=== PATIENT | female | born 1970 | race Caucasian/White ===

== ENCOUNTER → 2017-04-19 | Outpatient (CLI) | payer MEDICARE ==
[2015-09-02 16:55] VITALS: BP 147/92
[~2017-04-19] MED LIST: BENZ100C PO; PRED50TA PO; SULF1TAB24 PO
--- NOTE | 2017-04-20 07:14 | RAD ---
Chest, 2 views, 04/19/2017: History: Dyspnea The heart size and pulmonary vascularity are normal. No pulmonary infiltrates are seen. There is no evidence of pleural fluid. An electronic device overlies the left upper chest, of uncertain significance. Clinical correlation suggested. IMPRESSION: No acute cardiopulmonary abnormality is detected.
== END | disposition home or self-care (01) ==
LOC: RAD 16:46
PROVIDERS: ATTEND Physician Assistant
DX: R06.00 Dyspnea, unspecified (principal)
CPT/HCPCS: 71046

== ENCOUNTER 2017-11-19 21:06 | Inpatient (IN) | payer MEDICARE ==
[~2017-11-19] VITALS: Ht 175.3 cm; Wt 85.5 kg
--- NOTE | 2017-11-19 21:13 | ED.ADGEN ---
Past History Past Medical History: Hypertension, Migraines Past Surgical History: Cholecystectomy, Hysterectomy, Tonsillectomy Alcohol Use: None Drug Use: None Adult General Chief Complaint Chief Complaint ".. I guess I passed out or almost passed out...'.. " this has happen in the past....".. " I got real sweaty.. and then dizzy.. but I got down.. I did not hit my head..." HPI HPI Patient is a 47 year old female who presents with above hx and complaint of near vs syncope event. Pt. being diaphoretic and dizzy prior to near syncope/ syncopal episode. Patient is unaware of what her heart rate was at the time of syncope. Patient denies any injury and fall with the syncopal event. No history of changes in meds. No history of specific ill contacts. No history of trauma. No Recent travel. Patient has a history of hypertension . In the past has had severe migraines which resulted in a stimulator placement. No history of previous cardiac events. Has had near-syncope syncope events in the past. Review of Systems Review of Systems Constitutional: Denies fever or chills [] Eyes: Denies change in visual acuity, redness, or eye pain [] HENT: Denies nasal congestion or sore throat [] Respiratory: Denies cough or shortness of breath [] Cardiovascular: No additional information not addressed in HPI [] GI: Denies abdominal pain, nausea, vomiting, bloody stools or diarrhea [] : Denies dysuria or hematuria [] Musculoskeletal: Denies back pain or joint pain [] Integument: Denies rash or skin lesions [] Neurologic: Denies headache, focal weakness or sensory changes [] Complaints of syncope Endocrine: Denies polyuria or polydipsia [] All other systems were reviewed and found to be within normal limits, except as documented in this note. Family History Family History Non-contributory Current Medications Current Medications Current Medications Medications (Trade) Dose Ordered Sig/Abiola Start Time Stop Time Status Last Admin Dose Admin Lactated Ringer's 1,000 ml @ 1,000 mls/hr Q1H 11/19/17 22:00 11/19/17 22:59 DC 11/19/17 21:34 1,000 MLS/HR See Nursing for home meds. Allergies Allergies Allergies Coded Allergies Type Severity Reaction Last Updated Verified No Known Drug Allergies 01/05/15 No Physical Exam Physical Exam Constitutional: mild distress, non-toxic appearance. [] HENT: Normocephalic, atraumatic, bilateral external ears normal, oropharynx moist, no oral exudates, nose normal. [] Eyes: PERRLA, EOMI, conjunctiva normal, no discharge. [] Neck: Normal range of motion, no tenderness, supple, no stridor. [] Cardiovascular: Bradycardia Heart rate regular rhythm, no murmur [] Lungs & Thorax: Bilateral breath sounds clear to auscultation [] Stimulator Lt chest wall Abdomen: Bowel sounds normal, soft, no tenderness, no masses, no pulsatile masses. [] Old surgical scars. Skin: Warm, diaphoretic,, no erythema, no rash. [] Back: No tenderness, no CVA tenderness. [] Extremities: No tenderness, no cyanosis, no clubbing, ROM intact, no edema. [] Neurologic: Alert and oriented X 3, normal motor function, normal sensory function, no focal deficits noted. []DTR + 2 Patella and Brachial . Move all ext on request. Psychologic: Affect anxious, judgement normal, mood normal. [] Current Patient Data Vital Signs Vital Signs Date Time Temp Pulse Resp B/P (MAP) Pulse Ox O2 Delivery O2 Flow Rate FiO2 11/19/17 22:12 53 21 134/70 (91) 100 Room Air 11/19/17 21:10 98.4 Lab Results Laboratory Tests Test 11/19/17 21:41 White Blood Count 9.9 x10^3/uL (4.0-11.0) Red Blood Count 4.80 x10^6/uL (3.50-5.40) Hemoglobin 13.4 g/dL (12.0-15.5) Hematocrit 40.1 % (36.0-47.0) Mean Corpuscular Volume 84 fL (79-100) Mean Corpuscular Hemoglobin 28 pg (25-35) Mean Corpuscular Hemoglobin Concent 34 g/dL (31-37) Red Cell Distribution Width 14.8 % (11.5-14.5) H Platelet Count 254 x10^3/uL (140-400) Neutrophils (%) (Auto) 61 % (31-73) Lymphocytes (%) (Auto) 29 % (24-48) Monocytes (%) (Auto) 6 % (0-9) Eosinophils (%) (Auto) 4 % (0-3) H Basophils (%) (Auto) 1 % (0-3) Neutrophils # (Auto) 6.0 x10^3uL (1.8-7.7) Lymphocytes # (Auto) 2.9 x10^3/uL (1.0-4.8) Monocytes # (Auto) 0.6 x10^3/uL (0.0-1.1) Eosinophils # (Auto) 0.4 x10^3/uL (0.0-0.7) Basophils # (Auto) 0.1 x10^3/uL (0.0-0.2) Erythrocyte Sedimentation Rate 18 (0-25) Prothrombin Time 9.9 SEC (9.4-11.4) Prothrombin Time INR 1.0 (0.9-1.1) PTT 23 SEC (23-33) D-Dimer (Nelsy) 0.91 mg/L (0.00-0.50) H Maternal Serum HCG Beta Subunit 1 mIU/mL (0-6) Sodium Level 141 mmol/L (136-145) Potassium Level 3.1 mmol/L (3.5-5.1) L Chloride Level 103 mmol/L (98-107) Carbon Dioxide Level 30 mmol/L (21-32) Anion Gap 8 (6-14) Blood Urea Nitrogen 6 mg/dL (7-20) L Creatinine 0.9 mg/dL (0.6-1.0) Estimated GFR (Cockcroft-Gault) 67.7 Glucose Level 88 mg/dL (70-99) Calcium Level 8.6 mg/dL (8.5-10.1) Magnesium Level 2.2 mg/dL (1.8-2.4) Total Bilirubin 0.2 mg/dL (0.2-1.0) Direct Bilirubin 0.1 mg/dL (0.0-0.2) Aspartate Amino Transferase (AST) 12 U/L (15-37) L Alanine Aminotransferase (ALT) 17 U/L (14-59) Alkaline Phosphatase 105 U/L (46-116) Creatine Kinase 38 U/L (26-192) Troponin I Quantitative < 0.017 ng/mL (0-0.055) WK-Svd-B-Type Natriuretic Peptide 63 pg/mL (0-124) Total Protein 7.1 g/dL (6.4-8.2) Albumin 3.5 g/dL (3.4-5.0) Lipase 155 U/L (73-393) EKG EKG I interpretation EKG shows a sinus bradycardia with leftward axis. No findings acute STEMI of contralateral changes.[] Radiology/Procedures Radiology/Procedures My interpretation of chest x-ray shows no acute cardiopulmonary findings. Does have a stimulator in left upper chest area. My interpretation CT of head shows no shift, mass, edema, bleed, or fracture. Does have stimulator wires on exterior of skull. My interpretation of skull film shows stimulator wires on external skull.[] CT of chest show no central PE, has Hilar node-? reactive Course & Med Decision Making Course & Med Decision Making Pertinent Labs and Imaging studies reviewed. (See chart for details) Patient will be admitted to Dr. Oseguera consult to neurology and cardiology. Will supplement the hypo-kalemia. [] Final Impression Final Impression 1. Syncope[] 2. Hypokalemia 3.1 3. Elevated d-dimer 0.91 4. Bradycardia 5. Migraines 6. Pulmonary Nodule- ? Reactive Dragon Disclaimer Dragon Disclaimer This electronic medical record was generated, in whole or in part, using a voice recognition dictation system. GAGANDEEP HERNANDEZ MD Nov 19, 2017 21:13
[2017-11-19] MEDS ORDERED: IV RINGERS SOLUTION,LACTATED 1,000 ML IV SCH (22:00)
[2017-11-19 22:08] LABS: BASO # 0.1 x10^3/uL (0.0-0.2); BASO % 1 % (0-3); EOS # 0.4 x10^3/uL (0.0-0.7); EOS % 4 % (0-3); HEMATOCRIT 40.1 % (36.0-47.0); HEMOGLOBIN 13.4 g/dL (12.0-15.5); LYMPH # 2.9 x10^3/uL (1.0-4.8); LYMPH % 29 % (24-48); MEAN CORPUSCULAR HEMOGLOBIN 28 pg (25-35); MEAN CORPUSCULAR HGB CONC 34 g/dL (31-37); MEAN CORPUSCULAR VOLUME 84 fL (79-100); MONO # 0.6 x10^3/uL (0.0-1.1); MONO % 6 % (0-9); NEUT % 61 % (31-73); PLATELET COUNT 254 x10^3/uL (140-400); RED CELL DISTRIBUTION WIDTH 14.8 % (11.5-14.5); WHITE BLOOD COUNT 9.9 x10^3/uL (4.0-11.0)
--- NOTE | 2017-11-19 22:25 | RAD ---
CT Head W/O Contrast: History: Syncope tonight, weakness, dizziness. Hx: Neuro-stimulator for migraines Comparison: none Axial images were obtained without contrast. The mathis and white matter appears normal and symmetrical for the patients age. There is no mass effect, extraaxial fluid collections or hydrocephalus. There is no gross bleed. There is no focal loss of mathis-white matter distinction to suggest acute ischemia, i.e. stroke. Impression: No acute findings. RS Compliance Statement: One or more of the following individualized dose reduction techniques were utilized for this examination: 1. Automated exposure control 2. Adjustment of the mA and/or kV according to patient size 3. Use of iterative reconstruction technique Electronically signed by: Mauricio Fried III, MD (11/19/2017 10:21 PM) [facility] [place]
[2017-11-19 22:29] LABS: ALBUMIN 3.5 g/dL (3.4-5.0); CALCIUM 8.6 mg/dL (8.5-10.1); CREATININE 0.9 mg/dL (0.6-1.0); DIRECT BILIRUBIN 0.1 mg/dL (0.0-0.2); GFR 67.7; MAGNESIUM 2.2 mg/dL (1.8-2.4); POTASSIUM 3.1 mmol/L (3.5-5.1); TOTAL BILIRUBIN 0.2 mg/dL (0.2-1.0); TOTAL PROTEIN 7.1 g/dL (6.4-8.2)
[2017-11-19] MEDS ORDERED: ACETAMINOPHEN 325 MG TABLET PO PRN (22:45)
[2017-11-19] MEDS ORDERED: ONDANSETRON PF 4 MG/2 ML VIAL. IV PRN (22:45)
[2017-11-19] MEDS ORDERED: ENOXAPARIN ** NOTE DOSE ** SYRINGE SQ ONE (23:00)
[2017-11-19] MEDS ORDERED: ANTI-COAG MONITOR BY PHARMACY. MC PRN (23:00)
[2017-11-19] MEDS ORDERED: POTASSIUM CHLORIDE 20 MEQ/15 ML ORAL LIQUID. PO ONE (23:00)
[2017-11-19] MEDS ORDERED: ASPIRIN 325 MG TABLET PO ONE (23:00)
[2017-11-19 23:15] LABS: SEDIMENTATION RATE 18 (0-25)
[2017-11-19] MEDS ORDERED: IOHEXOL 300 MG/ML 75 ML VIAL. IV ONE (23:30)
[2017-11-19] MEDS ORDERED: CONTRAST GIVEN MC PRN (23:30)
[2017-11-20] VITALS (8 sets, daily range): BP systolic 97–129; BP diastolic 61–97
--- NOTE | 2017-11-20 00:41 | RAD ---
INDICATION: Omni 300 75cc: PE protocol: Syncope, dizziness, weakness, elevated d-dimer. Hx: Neuro stimulator for migraines COMPARISON: None. TECHNIQUE: Axial CT images obtained through the chest. Intravenous contrast utilized. Angiogram 3D images processed per protocol. One or more of the following individualized dose reduction techniques were utilized for this examination: 1. Automated exposure control; 2. Adjustment of the mA and/or kV according to patient size; 3. Use of iterative reconstruction technique. FINDINGS: Patchy dependent airspace opacities. No evidence of pneumothorax. There is some motion of the ascending thoracic aorta without definite aneurysmal dilatation. Motion artifact versus mild haziness to the fat adjacent to pancreas. No central pulmonary embolus. Limited peripherally secondary to motion. Mildly enlarged right hilar lymph node measuring up to about 14 mm short axis IMPRESSION: No central pulmonary embolus. Dependent airspace opacities bilaterally. Could be secondary to atelectasis or infiltrate. Enlarged right hilar lymph node. Could be reactive in nature given the pulmonic findings. Electronically signed by: Jaguar Nielsen MD (11/20/2017 12:37 AM) [facility]
[2017-11-20] MEDS: IV RINGERS SOLUTION,LACTATED 1,000 ML IV SCH ×4 (00:50→18:03)
--- NOTE | 2017-11-20 00:58 | EKG ---
[address] [address] Test Date: 2017-11-19 Test Time: 22:24:38 Pat Name: BARRINGTON SCHWARTZ Department: Room: 121 A Gender: F Wellness Rn: : 1970 Requested By: GAGANDEEP HERNANDEZ Order Number: [id number] Reading MD: Ángel Arreola MD Measurements Intervals Sandy Rate: 55 P: 31 WV: 142 QRS: -3 QRSD: 96 T: 20 QT: 458 QTc: 440 Interpretive Statements SINUS RHYTHM Electronically Signed On 11-20-2017 14:04:37 CDT by Ángel Arreola MD
[2017-11-20] MEDS ORDERED: OXYC1TAB7 (03:35)
[2017-11-20] MEDS ORDERED: BACL10TA (03:35)
[2017-11-20] MEDS ORDERED: GABA600T2 (03:35)
[2017-11-20] MEDS ORDERED: DULO60CA44 (03:35)
[2017-11-20] MEDS ORDERED: LAMO200T2 (03:35)
[2017-11-20] MEDS ORDERED: POTASSIUM CHLORIDE 20 MEQ/15 ML ORAL LIQUID. PO ONE (06:00)
[2017-11-20 06:45] LABS: BASO # 0.1 x10^3/uL (0.0-0.2); BASO % 1 % (0-3); EOS # 0.3 x10^3/uL (0.0-0.7); EOS % 4 % (0-3); HEMATOCRIT 34.6 % (36.0-47.0); HEMOGLOBIN 11.7 g/dL (12.0-15.5); LYMPH # 3.6 x10^3/uL (1.0-4.8); LYMPH % 38 % (24-48); MEAN CORPUSCULAR HEMOGLOBIN 28 pg (25-35); MEAN CORPUSCULAR HGB CONC 34 g/dL (31-37); MEAN CORPUSCULAR VOLUME 84 fL (79-100); MONO # 0.6 x10^3/uL (0.0-1.1); MONO % 7 % (0-9); NEUT # 4.7 x10^3uL (1.8-7.7); NEUT % 51 % (31-73); PLATELET COUNT 221 x10^3/uL (140-400); RED BLOOD COUNT 4.14 x10^6/uL (3.50-5.40); RED CELL DISTRIBUTION WIDTH 14.3 % (11.5-14.5); WHITE BLOOD COUNT 9.3 x10^3/uL (4.0-11.0)
[2017-11-20 06:54] LABS: CALCIUM 8.3 mg/dL (8.5-10.1); CREATININE 0.7 mg/dL (0.6-1.0); GFR 90.5; POTASSIUM 3.1 mmol/L (3.5-5.1)
[2017-11-20] MEDS: ENOXAPARIN ** NOTE DOSE ** SYRINGE SQ SCH ×2 (08:25→20:45)
--- NOTE | 2017-11-20 09:05 | RAD ---
Examination: PORTABLE CHEST 1V History: Syncope, weakness, dizziness Comparison/Correlation: None Findings: Portable frontal view of the chest was obtained. Heart size and pulmonary vasculature are normal. No infiltrate, pleural effusion, or pneumothorax. Bony structures are unremarkable. An electronic device is identified at the left lateral upper chest level with leads extending superiorly beyond the [id number]. Impression: No active disease. Electronically signed by: Burke Bolaños MD (11/20/2017 9:02 AM) [id number]
--- NOTE | 2017-11-20 09:07 | RAD ---
Examination: SKULL 2V History: Syncope tonight, weakness, dizziness, check wires after fall. Neuro-stimulator for migraines Comparison/Correlation: None Findings: Frontal and lateral views of the skull were obtained. A collection of wires are noted along the left side of the face and skull. Bilaterally, a lead is noted at the frontal region anteriorly above the orbits. Also bilaterally, there is a leads noted in the occipital region. Total of 4 leads identified. The leads appear to be intact. Bony structures of the skull and face are unremarkable. Soft tissues are normal. Impression: No fracture or bony destruction. Leads are intact. Electronically signed by: Burke Bolaños MD (11/20/2017 9:03 AM) [id number]
--- NOTE | 2017-11-20 09:10 | PDOC2 ---
SAMANTA GRECO APRN 11/20/17 0910: CONSULT Date of Admission DATE: 11/20/17 TIME: 09:09 Reason for Consult: near syncope Problem List Problems Medical Problems: (1) Syncope Status: Acute History of Present Illness Ms Smith is a 47 year old female who presents with complaints of near syncope. She reports standing talking with family when she had a sudden onset of lightheadedness, diaphoresis and feeling hot as well as nausea. She denies actual loss of consciousness. She has a prior history of recurrent history for which she has been seen in our office. She underwent stress testing in 2014 which failed to reveal any ischemic changes and echocardiogram at that time revealed normal LV function, wall motion, no significant valvular disfunction and was negative for interatrial shunting. She had a loop recorder implanted in 2014 and was monitored through April 2016 without any significant arrhythmias. She did report recurrent syncope during that time without associated arrhythmias and was recommended to have a Tilt test which she cancelled and did not complete. She denies chest pain, congestive symptoms or recent illness. She denies functional limitations. Cardiovascular: HTN, syncope CENTRAL NERVOUS SYSTEM: Migraine GI: GERD Heme/Onc: Anemia NOS Psych: Depression Musculoskeletal: Other (plantar fascitis) Endocrine: Other (vitamin D deficiency) Past Surgical History cyst removal, tubal ligation, cholecystectomy, tonsillectomy and adenoidectomy, hysterectomy, implanted neuro stimulator for migraines Family History cancer, coronary artery disease Social History + smoker, no significant ETOH, no illicit drugs Current Medications Current Medications Lactated Ringer's 1,000 ml @ 1,000 mls/hr Q1H IV Last administered on at 21:34; Start 11/19/17 at 22:00; Stop 11/19/17 at 22:59; Status DC Aspirin (Cassandra Aspirin) 325 mg 1X ONCE PO ; Start 11/19/17 at 23:00; Stop 11/19 at 23:01; Status DC Enoxaparin Sodium (Lovenox 100mg Syringe) 90 mg 1X ONCE SQ Last administered on 11/19/17at 23:14; Start 11/19/17 at 23:00; Stop 11/19/17 at 23:01; Status DC Potassium Chloride (KCl Oral Soln) 40 meq 1X ONCE PO Last administered on 11/19at 23:14; Start 11/19/17 at 23:00; Stop 11/19/17 at 23:01; Status DC Ondansetron HCl (Zofran) 4 mg PRN Q4HRS PRN IV NAUSEA/VOMITING; Start 11/19/17 at 22:45; Stop 11/20/17 at 22:44 Acetaminophen (Tylenol) 650 mg PRN Q4HRS PRN PO FEVER Last administered on 11/20at 00:48; Start 11/19/17 at 22:45; Stop 11/20/17 at 22:44 Enoxaparin Sodium (Lovenox 100mg Syringe) 90 mg BID SQ Last administered on 11/20/17at 08:25; Start 11/20/17 at 09:00 Lactated Ringer's 1,000 ml @ 160 mls/hr Q6H15M IV Last administered on at 08:26; Start 11/19/17 at 22:45 Potassium Chloride (KCl Oral Soln) 40 meq 1X ONCE PO Last administered on 11/20at 08:22; Start 11/20/17 at 06:00; Stop 11/20/17 at 06:01; Status DC Info (Anti-Coagulation Monitoring By Pharmacy) 1 each PRN DAILY PRN MC SEE COMMENTS; Start 11/19/17 at 23:00 Iohexol (Omnipaque 300 Mg/ml) 75 ml 1X ONCE IV Last administered on 11/19/17at 23:35; Start 11/19/17 at 23:30; Stop 11/19/17 at 23:31; Status DC Info (Do NOT chart on this entry -- for MONITORING) 1 each PRN DAILY PRN MC SEE COMMENTS; Start 11/19/17 at 23:30; Stop 11/21/17 at 23:29 Influenza Virus Vaccine (Afluria Trivalent 6016-2354 Syringe) 0.5 ml ONCE ONCE VAX IM ; Start 11/20/17 at 09:00; Stop 11/20/17 at 09:01; Status DC Active Scripts Active Tessalon Perle (Benzonatate) 100 Mg Capsule 1 Cap PO TID PRN Prednisone 50 Mg Tablet 1 Tab PO DAILY Bactrim Ds Tablet (Sulfamethoxazole/Trimethoprim) 1 Each Tablet 1 Tab PO BID Reported Duloxetine Hcl 60 Mg Capsule. Oxycodone-Acetaminophen 5-325 (Oxycodone Hcl/Acetaminophen) 1 Each Tablet Baclofen 10 Mg Tablet Lamotrigine 200 Mg Tablet Gabapentin 600 Mg Tablet Allergies: Coded Allergies: No Known Drug Allergies (Unverified , 01/05/15) Review of System as per HPI or negative General: Alert, Oriented X3, Cooperative, No acute distress HEENT: Atraumatic, EOMI, Mucous membr. moist/pink, Other (no carotid bruits) Lungs: Clear to auscultation, Normal air movement Heart: Regular rate, Normal S1, Normal S2, No murmurs Abdomen: Normal bowel sounds, Soft, No tenderness Extremities: No cyanosis, Normal pulses Neuro: Normal speech, Strength at 5/5 X4 ext Psych/Mental Status: Mental status NL, Mood NL VITALS Vital Signs Date Time Temp Pulse Resp B/P (MAP) Pulse Ox O2 Delivery O2 Flow Rate FiO2 11/20/17 04:23 97.8 68 20 98/61 (73) 96 Room Air Labs Laboratory Tests Test 11/19/17 21:41 11/20/17 06:08 White Blood Count 9.9 x10^3/uL (4.0-11.0) 9.3 x10^3/uL (4.0-11.0) Red Blood Count 4.80 x10^6/uL (3.50-5.40) 4.14 x10^6/uL (3.50-5.40) Hemoglobin 13.4 g/dL (12.0-15.5) 11.7 g/dL (12.0-15.5) Hematocrit 40.1 % (36.0-47.0) 34.6 % (36.0-47.0) Mean Corpuscular Volume 84 fL (79-100) 84 fL (79-100) Mean Corpuscular Hemoglobin 28 pg (25-35) 28 pg (25-35) Mean Corpuscular Hemoglobin Concent 34 g/dL (31-37) 34 g/dL (31-37) Red Cell Distribution Width 14.8 % (11.5-14.5) 14.3 % (11.5-14.5) Platelet Count 254 x10^3/uL (140-400) 221 x10^3/uL (140-400) Neutrophils (%) (Auto) 61 % (31-73) 51 % (31-73) Lymphocytes (%) (Auto) 29 % (24-48) 38 % (24-48) Monocytes (%) (Auto) 6 % (0-9) 7 % (0-9) Eosinophils (%) (Auto) 4 % (0-3) 4 % (0-3) Basophils (%) (Auto) 1 % (0-3) 1 % (0-3) Neutrophils # (Auto) 6.0 x10^3uL (1.8-7.7) 4.7 x10^3uL (1.8-7.7) Lymphocytes # (Auto) 2.9 x10^3/uL (1.0-4.8) 3.6 x10^3/uL (1.0-4.8) Monocytes # (Auto) 0.6 x10^3/uL (0.0-1.1) 0.6 x10^3/uL (0.0-1.1) Eosinophils # (Auto) 0.4 x10^3/uL (0.0-0.7) 0.3 x10^3/uL (0.0-0.7) Basophils # (Auto) 0.1 x10^3/uL (0.0-0.2) 0.1 x10^3/uL (0.0-0.2) Erythrocyte Sedimentation Rate 18 (0-25) Prothrombin Time 9.9 SEC (9.4-11.4) Prothromb Time International Ratio 1.0 (0.9-1.1) Activated Partial Thromboplast Time 23 SEC (23-33) D-Dimer (Nelsy) 0.91 mg/L (0.00-0.50) Maternal Serum HCG Beta Subunit 1 mIU/mL (0-6) Sodium Level 141 mmol/L (136-145) 140 mmol/L (136-145) Potassium Level 3.1 mmol/L (3.5-5.1) 3.1 mmol/L (3.5-5.1) Chloride Level 103 mmol/L (98-107) 107 mmol/L (98-107) Carbon Dioxide Level 30 mmol/L (21-32) 28 mmol/L (21-32) Anion Gap 8 (6-14) 5 (6-14) Blood Urea Nitrogen 6 mg/dL (7-20) 7 mg/dL (7-20) Creatinine 0.9 mg/dL (0.6-1.0) 0.7 mg/dL (0.6-1.0) Estimated GFR (Cockcroft-Gault) 67.7 90.5 Glucose Level 88 mg/dL (70-99) 103 mg/dL (70-99) Calcium Level 8.6 mg/dL (8.5-10.1) 8.3 mg/dL (8.5-10.1) Magnesium Level 2.2 mg/dL (1.8-2.4) Total Bilirubin 0.2 mg/dL (0.2-1.0) Direct Bilirubin 0.1 mg/dL (0.0-0.2) Aspartate Amino Transf (AST/SGOT) 12 U/L (15-37) Alanine Aminotransferase (ALT/SGPT) 17 U/L (14-59) Alkaline Phosphatase 105 U/L (46-116) Creatine Kinase 38 U/L (26-192) Troponin I Quantitative < 0.017 ng/mL (0-0.055) JH-Fpq-R-Type Natriuretic Peptide 63 pg/mL (0-124) Total Protein 7.1 g/dL (6.4-8.2) Albumin 3.5 g/dL (3.4-5.0) Lipase 155 U/L (73-393) Images CXT, Head CT and chest CT done without acute abn. EKG - sinus rhythm without acute ischemic changes or arrhythmias. Assessment/Plan 1. near syncope - ? vasovagal. No significant arrhythmias on monitor. She underwent loop implant with monitoring for ~2 years which failed to reveal any significant arrhythmias. Check orthostatics. Check echo. Neuro consulted as well. Await input. Could consider repeat outpatient monitoring and rescheduling Tilt test. 2. hypertension - mildly hypotensive this am. Hold antihypertensives and resume slowly as indicated. 3. hypokalemia - replacement per PCP AMAN VASQUEZ MD 11/20/170: CONSULT Assessment/Plan Patient seen and examined. Agree with [employer]'s assessment and plan. Near syncope prob vasovagal Tele did not show any significant arrhythmias 2D echo showed normal LV function Agree with event monitor and tilt table testing as outpatient Thank you for your consultation SAMANTA GRECO APRN Nov 20, 2017 09:10 AMAN VASQUEZ MD Nov 20, 2017 21:17
[2017-11-20 10:14] LABS: BACTERIA,URINE 0 /HPF (0-FEW); BILIRUBIN,URINE NEG (NEG); CLARITY,URINE CLEAR; COLOR,URINE YELLOW; GLUCOSE,URINE NEG (NEG); NITRITE,URINE NEG (NEG); RBC,URINE 0 /HPF (0-2); SQUAMOUS EPITHELIAL CELL,UR OCC /LPF; UROBILINOGEN,URINE 0.2 mg/dL (0.2 mg/dL); WBC,URINE 0 /HPF (0-4)
[2017-11-20 10:15] LABS: AMPHETAMINE/METHAMPHETAMINE NEG (NEG); BARBITURATES NEG (NEG); BENZODIAZEPINES NEG (NEG); CANNABINOIDS NEG (NEG); COCAINE NEG (NEG); METHADONE NEG (NEG); OPIATES NEG (NEG); PHENCYCLIDINE NEG (NEG)
--- NOTE | 2017-11-20 10:30 | HP ---
ADMIT DATE: 11/19/2017 HISTORY OF PRESENT ILLNESS: The patient is a 47-year-old female patient who was admitted with a complaint of dizziness and lightheadedness. She apparently sat down and then she lost consciousness for a brief period of time and has already regained consciousness by the time she was brought to the Emergency Room. Apparently, there was no reported tonic-clonic seizure, no tongue biting, and no bowel or bladder incontinence. She was extensively investigated in the Emergency Room. She was found to be hypokalemic and her D-dimer was high at 0.91, so she underwent also CT angio of the chest, which basically showed no central pulmonary embolus, dependent airspace opacities bilaterally could be secondary to atelectasis and infiltrate, enlarged right hilar lymph node could be reactive in nature given the pulmonic finding. She was admitted to be seen by Cardiology as well as the Neurology team. She apparently had similar episodes before and has had a manager copy for almost 2 years, did not show any evidence of any cardiac arrhythmias. PAST MEDICAL HISTORY: Significant for chronic migraine headache as well as hypertension. PAST SURGICAL HISTORY: Significant for total abdominal hysterectomy, cholecystectomy, neurostimulator placement for migraine headaches as well as tonsillectomy, adenoidectomy, and ovarian cyst removal. ALLERGIES: She has no known drug allergies. MEDICATIONS: She is currently on following medications: She is on sulfamethoxazole/trimethoprim 1 tablet twice a day, baclofen 10 mg, oxycodone/APAP 5/325 one tablet. She is also on gabapentin 600 mg, lamotrigine 200 mg, duloxetine 60 mg, benzonatate 100 mg 3 times a day, and prednisone 50 mg daily. FAMILY HISTORY: She has one sister older, still alive and healthy. Mother is still alive and healthy. Father at age of 65 because of lung cancer. SOCIAL HISTORY: She is , has 3 sons. She smokes half a pack a day, does not drink alcohol or recreational drugs. She is on disability because of her migraine headache. REVIEW OF SYSTEMS: The patient denied any blurring of vision, cataract, glaucoma, or macular degeneration. Denied any earache, tinnitus, or sensorineural deafness. Denied any nosebleeds, stuffy nose, or postnasal drip. Denied any sore throat, sore tongue, toothache, hoarseness of voice or difficulty swallowing. Denied any nausea, vomiting, diarrhea, or constipation. Denied any hematemesis, melena, or hematochezia. Denied any dysuria, frequency, or hematuria. Denied any chest pain, shortness of breath, orthopnea, paroxysmal nocturnal dyspnea. Denied any cough, phlegm, or hemoptysis. Did complain of dizziness, lightheadedness. Denied any vertigo or palpitation. PHYSICAL EXAMINATION: GENERAL: On arrival to the Emergency Room, she looked well and was clearly in no apparent respiratory distress. No pallor, jaundice, cyanosis, or thyromegaly. No jugular venous distension. No limb edema. VITAL SIGNS: Her heart rate was 65, blood pressure was 134/70, temperature was 98.4, respiratory rate was 20, and oxygen saturation was 99% on room air. HEAD, EYES, EARS, NOSE, AND THROAT: Showed normocephalic, atraumatic. NECK: Supple. HEART: Showed normal first and second heart sounds. No gallop, rub, or murmur. CHEST: Clear to auscultation. No crepitation or rhonchi. ABDOMEN: Distended, soft, nontender. No guarding or rigidity. No organomegaly. All hernial orifice intact. Bowel sounds normal. NEUROLOGIC: She was awake, alert, responding appropriately. Cranial nerves intact. EXTREMITIES: She moves extremities without difficulty. LABORATORY DATA: On arrival to the Emergency Room, she had lab work done, which showed a white cell count of 9900, hemoglobin 13.4, hematocrit 40, MCV 84, and platelet count of 254,000. Her chemistry showed a serum sodium 141, potassium 3.1, chloride 103, bicarbonate 30, anion gap of 8, BUN 6, creatinine 0.9, estimated GFR was 67 mL per minute. Her glucose was 88, calcium was 8.6, magnesium 2.2. Total bilirubin, AST, ALT, alkaline phosphatase were normal. Her total protein was 7.1, albumin 3.5, lipase was 155. Her prothrombin time was 9.9, INR of 1, aPTT was 23, and D-dimer was high at 0.91. Her test was negative. Her x-ray of the skull showed no evidence of fracture or bony destruction. CT scan of the head showed the mathis and white matter appeared normal and symmetrical for the patient's age. There is no mass effect or extracranial fluid collection or hydrocephalus. There is no gross bleed. There is no focal loss of rodríguez white matter distinction to suggest an acute ischemia. Chest x-ray showed heart size and pulmonary vasculature are normal and no infiltrate, pleural effusion, or pneumothorax. Bony destruction unremarkable. An electronic device is identified at the left lateral upper chest level with leads extending superiorly beyond the field of view. CT angio of the chest showed that the patient has no central pulmonary embolus dependent airspace opacities bilaterally could be secondary to atelectasis and infiltrate, enlarged right hilar lymph nodes could be reactive in nature given the pulmonic finding. ASSESSMENT AND PLAN: The patient was admitted with a syncopal episode. She apparently has similar symptoms before and has had manager copy for almost 2 years without finding any cardiac arrhythmias. My plan is to consult the Cardiology team as well as neurologist and decide the further management accordingly. LEEANN BERUMEN MD DR: MIRIAM/chandan JOB#: [id number] / [id number]
--- NOTE | 2017-11-20 14:17 | RAD ---
EXAM: Bilateral lower extremity venous Doppler sonogram. HISTORY: Syncope. Pain and swelling. TECHNIQUE: Friedman scale and color Doppler sonographic evaluation of the bilateral lower extremity veins with spectral waveform analysis was performed. FINDINGS: There is normal color flow, normal compressibility and there are normal spectral waveforms in the common femoral, superficial femoral, popliteal, posterior tibial and greater saphenous veins. There are prominent inguinal lymph nodes. These maintain benign fatty florence and are likely reactive or physiologic. IMPRESSION: No Doppler evidence of lower extremity deep venous thrombosis. Electronically signed by: Cyndi Gómez MD (11/20/2017 2:13 PM) [place] [id number]
--- NOTE | 2017-11-20 14:30 | RAD ---
EXAM: Carotid Doppler sonogram. HISTORY: Syncope. TECHNIQUE: Friedman scale and color Doppler sonographic evaluation of the neck with spectral waveform analysis was performed and static images are submitted for review. FINDINGS: The peak systolic velocity within the right common carotid artery is 51 cm/sec. The peak systolic velocity within the right internal carotid artery is 63 cm/sec and the end diastolic velocity within the right internal carotid artery is 23 cm/sec. The right ICA/CCA ratio is 1.2. The peak systolic velocity within the left common carotid artery is 42 cm/sec. The peak systolic velocity within the left internal carotid artery is 86 cm/sec and the end diastolic velocity within the left internal carotid artery is 28 cm/sec. The left ICA/CCA ratio is 1.3. There is normal antegrade flow within both vertebral arteries. IMPRESSION: No Doppler evidence of hemodynamically significant stenosis within the carotid or vertebral arteries. PQRS Compliance Statement - Stenosis calculations for CT, MR and conventional angiography are based upon measurement of the distal ICA diameter in accordance with the NASCET methodology. Stenosis calculations for carotid ultrasound studies are derived from validated velocity criteria which are known to correlate with the NASCET methodology. Electronically signed by: Cyndi Gómez MD (11/20/2017 2:26 PM) [facility]
--- NOTE | 2017-11-20 17:37 | CARD ---
MR#: [id number] Date of Study: 11/20/2017 Ordering Physician: SAMANTA GRECO, Referring Physician: LEEANN BERUMEN, Tech: Mitzy Bess APPROVED REPORT EXAM: Two-dimensional and M-mode echocardiogram with Doppler and color Doppler. Other Information Quality : GoodHR: 79bpm Rhythm : NSR INDICATION Syncope 2D DIMENSIONS RVDd3.1 (2.9-3.5cm)Left Atrium(2D)3.7 (1.6-4.0cm) IVSd0.9 (0.7-1.1cm)LVDd4.6 (3.9-5.9cm) LVOT Diameter2.1 (1.8-2.4cm)PWd0.8 (0.7-1.1cm) LVDs3.4 (2.5-4.0cm)FS (%) 27.2 % SV52.5 ml Aortic Valve AoV Peak Ammon.161.0cm/sAoV VTI35.1cm AO Peak GR.10.4mmHgLVOT Peak Ammon.131.1cm/s LVOT VTI 22.03cmAO Mean GR.6mmHg NATHALIA (VMAX)2.59za0UUM (VTI)2.23cm2 Mitral Valve MV E Titqilbj99.5cm/sMV DECEL [id number] MV A Ghjczcbh95.0cm/sE/A Ratio1.0 Pulmonary Valve PV Peak Vkseovps129.9cm/sPV Peak Grad.4mmHg Tricuspid Valve TR P. Fomzfbxw215zq/sRAP [id number] TR Peak Gr.28wtHrZQNZ80lsQo Pulmonary Vein S1 Kwlfhudh72.3cm/sD2 Kgodozer83.8cm/s LEFT VENTRICLE The left ventricle is normal size. There is borderline concentric left ventricular hypertrophy. The l eft ventricular systolic function is normal and the ejection fraction is within normal range. The Eje ction Fraction is 55-60%. There is normal LV segmental wall motion. The left ventricular diastolic fu nction and filling is normal for age. RIGHT VENTRICLE The right ventricle is normal size. There is normal right ventricular wall thickness. The right ventr icular systolic function is normal. ATRIA The left atrium size is normal. The right atrium size is normal. The interatrial septum is intact wit h no evidence for an atrial septal defect or patent foramen ovale as noted on 2-D or Doppler imaging. AORTIC VALVE The aortic valve is normal in structure and function. Doppler and Color Flow revealed no significant aortic regurgitation. There is no significant aortic valvular stenosis. MITRAL VALVE The mitral valve is normal in structure and function. There is no mitral valve stenosis. Doppler and Color Flow revealed no mitral valve regurgitation noted. TRICUSPID VALVE The tricuspid valve is normal in structure and function. Doppler and Color Flow revealed trace tricus pid regurgitation. PULMONIC VALVE The pulmonic valve is not well visualized. Doppler and Color Flow revealed no pulmonic valvular regur gitation. GREAT VESSELS The aortic root is normal in size. The IVC is normal in size and collapses >50% with inspiration. PERICARDIAL EFFUSION There is no evidence of significant pericardial effusion. Critical Notification Critical Value: No <Conclusion> The left ventricle is normal size. The left ventricular systolic function is normal and the ejection fraction is within normal range. The Ejection Fraction is 55-60%. There is borderline concentric left ventricular hypertrophy. There is no significant aortic valvular stenosis. Doppler and Color Flow revealed no significant aortic regurgitation. Doppler and Color Flow revealed no mitral valve regurgitation noted. Doppler and Color Flow revealed trace tricuspid regurgitation. Signed by : Chandan Alas MD Electronically Approved : 11/20/2017 17:35:48
[2017-11-20] MEDS ORDERED: LOPERAMIDE 2 MG CAPSULE PO PRN (20:15)
[2017-11-20] MEDS ORDERED: GABAPENTIN 300 MG CAPSULE. PO SCH (21:00)
[2017-11-20] MEDS ORDERED: lamoTRIgine 100 MG TABLET. PO SCH (21:00)
[2017-11-20] MEDS ORDERED: BACLOFEN 10 MG TABLET PO SCH (21:00)
[2017-11-20] MEDS ORDERED: DULoxetine HCL 60 MG CAPSULE.DR PO SCH (21:00)
--- NOTE | 2017-11-20 21:12 | PN ---
DATE: 11/20/2017 SUBJECTIVE: The patient is resting slightly propped up in bed, in no apparent distress. On questioning her this morning, denied any complaint. In particular, she has no further episodes of dizziness, lightheadedness, or syncope. The nursing staff did not voice any concerns that she has an uneventful night. PHYSICAL EXAMINATION: GENERAL: When I examined her, she looked well and was clearly in no apparent respiratory distress, pale, but no jaundice, cyanosis, or thyromegaly. No jugular venous distention. No limb edema. VITAL SIGNS: Her heart rate was 68, blood pressure was 88/61, temperature was 97.8, respiratory rate 20, and oxygen saturation was 96% on room air. HEAD, EYES, EARS, NOSE, AND THROAT: Showed normocephalic, atraumatic. NECK: Supple. HEART: Showed normal first and second heart sounds. No gallop, rub, or murmur. CHEST: Clear to auscultation. No crepitation or rhonchi. ABDOMEN: Distended, soft, nontender. NEUROLOGIC: She was awake, alert, responding appropriately. All cranial nerves intact. She moves extremities without difficulty. She ambulates without assistance or assistive devices. Her intake was 518, no output was recorded. LABORATORY DATA: Her lab work this morning showed a white cell count 9300, hemoglobin 11.7, hematocrit 34, MCV 84, and platelet count 221,000. Her serum sodium 140, potassium 3.1, chloride 107, bicarbonate 28, anion gap of 5, BUN 7, creatinine 0.7, estimated GFR was 90 mL per minute. Her glucose was 103, calcium was 8.2. ASSESSMENT: Syncope, hypertension, and migraine headache for which she has a neurostimulator. PLAN: My plan is to basically continue with await the evaluation by the Cardiology team as well as the neurologist. Apparently, she has had rn referral for almost 2 years without revealing any cardiac arrhythmias. I will replenish her potassium and check also orthostatics. LEEANN BERUMEN MD DR: MIRIAM/chandan JOB#: [id number] / [id number]
[2017-11-21] MEDS: IV RINGERS SOLUTION,LACTATED 1,000 ML IV SCH ×2 (00:23→06:27)
[2017-11-21 06:06] VITALS: BP 120/70
[2017-11-21 06:32] LABS: CALCIUM 8.3 mg/dL (8.5-10.1); CREATININE 0.8 mg/dL (0.6-1.0); GFR 77.6; POTASSIUM 3.6 mmol/L (3.5-5.1)
[2017-11-21] MEDS: ENOXAPARIN ** NOTE DOSE ** SYRINGE SQ SCH (09:00)
--- NOTE | 2017-11-21 09:44 | PDOC ---
PROGRESS NOTES Diagnosis Problem Problems Medical Problems: (1) Syncope Status: Acute Assessment Problems Medical Problems: (1) Syncope Status: Acute 1. near syncope - prob vasovagal. Reviewed preventative measures with patient. No significant arrhythmias on monitor. Normal LV function by echo. Negative orthostatics. repeat outpatient monitoring and reschedule Tilt test. Outpatient follow up in 4-6 weeks after monitor. 2. hypertension - controlled. 3. hypokalemia - replaced Subjective "ready to go home" no chest pain, no dyspnea, no lightheadedness. Objective Vital Signs Date Time Temp Pulse Resp B/P (MAP) Pulse Ox O2 Delivery O2 Flow Rate FiO2 11/21/17 06:06 98.4 81 18 120/70 (87) 96 Room Air Intake and Output 11/21/17 07:00 Intake Total 5339 ml Output Total 500 ml Balance 4839 ml Intake Oral 1680 ml IV Total 3659 ml Output Urine Total 500 ml # Voids 3 Abdomen: Normal bowel sounds, Soft, No tenderness Heart: Regular rate, Normal S1, Normal S2 Extremities: No cyanosis, No edema, Normal pulses General: Alert, Oriented X3, Cooperative, No acute distress HEENT: Atraumatic, EOMI, Mucous membr. moist/pink Lungs: Clear to auscultation, Normal air movement Neuro: Normal speech, Strength at 5/5 X4 ext Psych/Mental Status: Mental status NL, Mood NL Review of Relevant I have reviewed the following items cosmo (where applicable) has been applied. Labs Laboratory Tests Test 11/19/17 21:41 11/20/17 06:08 11/20/17 10:00 11/21/17 05:48 White Blood Count 9.9 x10^3/uL (4.0-11.0) 9.3 x10^3/uL (4.0-11.0) Red Blood Count 4.80 x10^6/uL (3.50-5.40) 4.14 x10^6/uL (3.50-5.40) Hemoglobin 13.4 g/dL (12.0-15.5) 11.7 g/dL (12.0-15.5) Hematocrit 40.1 % (36.0-47.0) 34.6 % (36.0-47.0) Mean Corpuscular Volume 84 fL (79-100) 84 fL (79-100) Mean Corpuscular Hemoglobin 28 pg (25-35) 28 pg (25-35) Mean Corpuscular Hemoglobin Concent 34 g/dL (31-37) 34 g/dL (31-37) Red Cell Distribution Width 14.8 % (11.5-14.5) 14.3 % (11.5-14.5) Platelet Count 254 x10^3/uL (140-400) 221 x10^3/uL (140-400) Neutrophils (%) (Auto) 61 % (31-73) 51 % (31-73) Lymphocytes (%) (Auto) 29 % (24-48) 38 % (24-48) Monocytes (%) (Auto) 6 % (0-9) 7 % (0-9) Eosinophils (%) (Auto) 4 % (0-3) 4 % (0-3) Basophils (%) (Auto) 1 % (0-3) 1 % (0-3) Neutrophils # (Auto) 6.0 x10^3uL (1.8-7.7) 4.7 x10^3uL (1.8-7.7) Lymphocytes # (Auto) 2.9 x10^3/uL (1.0-4.8) 3.6 x10^3/uL (1.0-4.8) Monocytes # (Auto) 0.6 x10^3/uL (0.0-1.1) 0.6 x10^3/uL (0.0-1.1) Eosinophils # (Auto) 0.4 x10^3/uL (0.0-0.7) 0.3 x10^3/uL (0.0-0.7) Basophils # (Auto) 0.1 x10^3/uL (0.0-0.2) 0.1 x10^3/uL (0.0-0.2) Erythrocyte Sedimentation Rate 18 (0-25) Prothrombin Time 9.9 SEC (9.4-11.4) Prothromb Time International Ratio 1.0 (0.9-1.1) Activated Partial Thromboplast Time 23 SEC (23-33) D-Dimer (Nelsy) 0.91 mg/L (0.00-0.50) Maternal Serum HCG Beta Subunit 1 mIU/mL (0-6) Sodium Level 141 mmol/L (136-145) 140 mmol/L (136-145) 142 mmol/L (136-145) Potassium Level 3.1 mmol/L (3.5-5.1) 3.1 mmol/L (3.5-5.1) 3.6 mmol/L (3.5-5.1) Chloride Level 103 mmol/L (98-107) 107 mmol/L (98-107) 109 mmol/L (98-107) Carbon Dioxide Level 30 mmol/L (21-32) 28 mmol/L (21-32) 28 mmol/L (21-32) Anion Gap 8 (6-14) 5 (6-14) 5 (6-14) Blood Urea Nitrogen 6 mg/dL (7-20) 7 mg/dL (7-20) 5 mg/dL (7-20) Creatinine 0.9 mg/dL (0.6-1.0) 0.7 mg/dL (0.6-1.0) 0.8 mg/dL (0.6-1.0) Estimated GFR (Cockcroft-Gault) 67.7 90.5 77.6 Glucose Level 88 mg/dL (70-99) 103 mg/dL (70-99) 88 mg/dL (70-99) Calcium Level 8.6 mg/dL (8.5-10.1) 8.3 mg/dL (8.5-10.1) 8.3 mg/dL (8.5-10.1) Magnesium Level 2.2 mg/dL (1.8-2.4) Total Bilirubin 0.2 mg/dL (0.2-1.0) Direct Bilirubin 0.1 mg/dL (0.0-0.2) Aspartate Amino Transf (AST/SGOT) 12 U/L (15-37) Alanine Aminotransferase (ALT/SGPT) 17 U/L (14-59) Alkaline Phosphatase 105 U/L (46-116) Creatine Kinase 38 U/L (26-192) Troponin I Quantitative < 0.017 ng/mL (0-0.055) QV-Kil-I-Type Natriuretic Peptide 63 pg/mL (0-124) Total Protein 7.1 g/dL (6.4-8.2) Albumin 3.5 g/dL (3.4-5.0) Lipase 155 U/L (73-393) Thyroid Stimulating Hormone (TSH) 6.688 uIU/mL (0.358-3.740) Urine Collection Type Unknown Urine Color Yellow Urine Clarity Clear Urine pH 6.0 Urine Specific Hilliard <=1.005 Urine Protein Neg (NEG-TRACE) Urine Glucose (UA) Neg mg/dL (NEG) Urine Ketones (Stick) Neg mg/dL (NEG) Urine Blood Neg (NEG) Urine Nitrite Neg (NEG) Urine Bilirubin Neg (NEG) Urine Urobilinogen Dipstick 0.2 mg/dL (0.2 mg/dL) Urine Leukocyte Esterase Neg (NEG) Urine RBC 0 /HPF (0-2) Urine WBC 0 /HPF (0-4) Urine Squamous Epithelial Cells Occ /LPF Urine Bacteria 0 /HPF (0-FEW) Urine Opiates Screen Neg (NEG) Urine Methadone Screen Neg (NEG) Urine Barbiturates Neg (NEG) Urine Phencyclidine Screen Neg (NEG) Urine Amphetamine/Methamphetamine Neg (NEG) Urine Benzodiazepines Screen Neg (NEG) Urine Cocaine Screen Neg (NEG) Urine Cannabinoids Screen Neg (NEG) Urine Ethyl Alcohol Neg (NEG) Medications Current Medications Lactated Ringer's 1,000 ml @ 1,000 mls/hr Q1H IV Last administered on at 21:34; Start 11/19/17 at 22:00; Stop 11/19/17 at 22:59; Status DC Aspirin (Cassandra Aspirin) 325 mg 1X ONCE PO ; Start 11/19/17 at 23:00; Stop 11/19 at 23:01; Status DC Enoxaparin Sodium (Lovenox 100mg Syringe) 90 mg 1X ONCE SQ Last administered on 11/19/17at 23:14; Start 11/19/17 at 23:00; Stop 11/19/17 at 23:01; Status DC Potassium Chloride (KCl Oral Soln) 40 meq 1X ONCE PO Last administered on 11/19at 23:14; Start 11/19/17 at 23:00; Stop 11/19/17 at 23:01; Status DC Ondansetron HCl (Zofran) 4 mg PRN Q4HRS PRN IV NAUSEA/VOMITING; Start 11/19/17 at 22:45; Stop 11/20/17 at 22:44; Status DC Acetaminophen (Tylenol) 650 mg PRN Q4HRS PRN PO FEVER Last administered on 11/20at 00:48; Start 11/19/17 at 22:45; Stop 11/20/17 at 22:44; Status DC Enoxaparin Sodium (Lovenox 100mg Syringe) 90 mg BID SQ Last administered on 11/20/17at 20:45; Start 11/20/17 at 09:00 Lactated Ringer's 1,000 ml @ 160 mls/hr Q6H15M IV Last administered on at 06:27; Start 11/19/17 at 22:45 Potassium Chloride (KCl Oral Soln) 40 meq 1X ONCE PO Last administered on 11/20at 08:22; Start 11/20/17 at 06:00; Stop 11/20/17 at 06:01; Status DC Info (Anti-Coagulation Monitoring By Pharmacy) 1 each PRN DAILY PRN MC SEE COMMENTS; Start 11/19/17 at 23:00 Iohexol (Omnipaque 300 Mg/ml) 75 ml 1X ONCE IV Last administered on 11/19/17at 23:35; Start 11/19/17 at 23:30; Stop 11/19/17 at 23:31; Status DC Info (Do NOT chart on this entry -- for MONITORING) 1 each PRN DAILY PRN MC SEE COMMENTS; Start 11/19/17 at 23:30; Stop 11/21/17 at 23:29 Influenza Virus Vaccine (Afluria Trivalent [id number] Syringe) 0.5 ml ONCE ONCE VAX IM Last administered on 11/20/17at 13:24; Start 11/20/17 at 09:00; Stop 11/20/17 at 09:01; Status DC Baclofen (Lioresal) 10 mg HS PO Last administered on 11/20/17at 20:44; Start at 21:00 Duloxetine HCl (Cymbalta) 60 mg HS PO Last administered on 11/20/17at 20:44; Start 11/20/17 at 21:00 Gabapentin (Neurontin) 600 mg HS PO Last administered on 11/20/17at 20:45; Start 11/20/17 at 21:00 Lamotrigine (LaMICtal) 200 mg HS PO Last administered on 11/20/17at 20:44; Start 11/20/17 at 21:00 Loperamide HCl (Imodium) 2 mg PRN Q15MIN PRN PO DIARRHEA Last administered on 11/20/17at 20:45; Start 11/20/17 at 20:15 Active Scripts Active Reported Duloxetine Hcl 60 Mg Capsule.dr COLEY Baclofen 10 Mg Tablet HS Lamotrigine 200 Mg Tablet HS Gabapentin 600 Mg Tablet HS Vitals/I & O Vital Sign - Last 24 Hours 11/20/17 11/20/17 11/20/17 11/20/17 10:20 14:43 14:44 14:45 Temp 97.9 98.3 Pulse 69 81 86 86 Resp 16 20 B/P (MAP) 97/69 (78) 103/65 (78) 120/75 (90) 122/80 (94) Pulse Ox 99 98 98 99 O2 Delivery Room Air Room Air Room Air Room Air 11/20/17 11/20/17 11/20/17 11/21/17 19:42 20:00 23:10 06:06 Temp 98.4 98.4 98.4 Pulse 84 74 81 Resp 20 18 18 B/P (MAP) 126/85 (99) 127/68 (87) 120/70 (87) Pulse Ox 97 99 96 O2 Delivery Room Air Room Air Room Air Room Air Intake and Output 11/20/17 11/20/17 11/21/17 15:00 23:00 07:00 Intake Total 1499 ml 1240 ml 2600 ml Output Total 500 ml Balance 999 ml 1240 ml 2600 ml SAMANTA GRECO APRN Nov 21, 2017 09:44
--- NOTE | 2017-11-21 15:27 | DS ---
DATE OF DISCHARGE: 11/21/2017 HISTORY OF PRESENT ILLNESS: The patient his admitted with a syncopal episode. She apparently has had a loop recorder for 2 years, which did not show any cardiac arrhythmias, although she did have a syncopal episode. She was seen in consultation by the Cardiology team and has had an echocardiogram done, which basically showed that her left ventricle is normal in size. Left ventricular systolic function is normal and ejection fraction of 55-60%. There is borderline concentric left ventricular hypertrophy. No significant aortic valvular stenosis, no significant aortic regurgitation, no mitral valve regurgitation and trace tricuspid regurgitation. Basically, the plan was for her to be discharged home and arrangement for a tilt table test. Meanwhile, she is to continue with all her other medications. PHYSICAL EXAMINATION: GENERAL: On questioning her this morning, she denied any complaint and has had no further episodes of syncope while here. She has been up and about. When I examined her, she looked pale, but no jaundice, cyanosis, lymphadenopathy or thyromegaly. No jugular venous distension. No lower limb edema. VITAL SIGNS: Her heart rate was 81, blood pressure 120/70, temperature was 98.4, respiratory rate was 18 and oxygen saturation was 96%. HEENT: She is normocephalic, atraumatic. NECK: Supple. HEART: Showed normal first and second heart sounds with no gallop, rub or murmur. CHEST: Clear to auscultation. No crepitation or rhonchi. ABDOMEN: Distended, soft, nontender. No guarding or rigidity. No organomegaly. Hernial orifice intact. Bowel sounds normal. NEUROLOGIC: She is awake, alert, responding appropriately. All cranial nerves intact. She moves extremities without difficulty. She ambulates without assistance or assistive devices. Her intake was 5339, output was 500. LABORATORY DATA: Her lab work this morning showed a white cell count 9300, hemoglobin 12, hematocrit 35, MCV 84 and platelet count 221,000. Her serum sodium was 142, potassium 3.6, chloride 109, bicarbonate 28, anion gap of 5, BUN 5, creatinine 0.8, estimated GFR was 77 mL per minute. Her glucose was 88 and calcium was 8.3. Her TSH was 6.688. Her prothrombin time was 9.9, INR of 1, aPTT was 2300. D-dimer was 0.91. Urinalysis was unremarkable and toxic screen was essentially negative. RADIOLOGICAL DATA: Her skull x-ray was normal with no evidence of fracture. CT scan of the head showed no acute finding. Her chest x-ray was unremarkable. CT angio of the chest showed no central pulmonary emboli, dependent airspace opacities bilaterally, could be secondary to atelectasis or infiltrate. Her bilateral lower extremity Doppler ultrasound showed no Doppler evidence of lower extremity deep vein thrombosis and bilateral carotid Doppler showed that no Doppler evidence of hemodynamically significant stenosis within the carotid or vertebral arteries. DISCHARGE MEDICATIONS: She will be discharged home to continue on her baclofen, duloxetine, gabapentin, and lamotrigine and arrangements will be made for her to have a tilt table test as well as event monitor. FINAL DISCHARGE DIAGNOSES: 1. Syncope. 2. Migraine headache for which she has a neuro stimulator. 3. Hypertension. LEEANN BERUMEN MD DR: MIRIAM/chandan JOB#: [id number] / [id number]
--- NOTE | 2017-11-21 16:15 | CONS ---
DATE OF CONSULTATION: NEUROLOGY CONSULTATION REFERRING PHYSICIAN: Dr. Oseguera. REASON FOR CONSULTATION: Dizziness and near syncope. HISTORY OF PRESENT ILLNESS: This is a 47-year-old right-handed female, who was admitted through Emergency Room after she presented with a chief complaint of sudden onset of dizziness and lightheadedness. The patient was sitting and all of a sudden she felt very dizzy and sweaty and had a loss of consciousness for a few seconds. The patient did recall the event; however, she did not have any tongue biting, bowel or bladder incontinence or seizure-like activities. She denies palpitation, chest pain, shortness of breath, nausea, or vomiting. On arrival to Emergency Room, the patient was alert and oriented. She was found to have hypokalemia and elevated D-dimer. Initial nonenhanced head CT scan revealed no significant intracranial process. The patient underwent a CT angio of the chest, which revealed no evidence of pulmonary embolism. She describes similar episode in the past and had a prolonged Holter monitor for approximately 2 years without finding any evidence of cardiac arrhythmias. The patient also complains of intermittent intractable migraine headaches, which was treated successfully with a stimulator implant performed by neurosurgeon with a reduced frequency of her migraine headaches with her standard migraine medications. Medications have not worked for her in the past. She continued to have two migraine headaches weekly. PAST MEDICAL HISTORY: Significant for hypertension and migraine headache as described above. PAST SURGICAL HISTORY: Significant for cholecystectomy, hysterectomy, neurostimulator implant for migraine headaches, adenoidectomy and ovarian cyst removal. SOCIAL HISTORY: The patient is . She has 3 children. She has 3 sons. She smokes 1 pack of cigarettes daily. She denies alcohol drinking or illicit drug use. She is on disability because of intractable migraine headaches. FAMILY HISTORY: Father at the age of 65 of lung cancer. Mother is alive and healthy. REVIEW OF SYSTEMS: A 10-point review of system was performed as mentioned above in history of present illness and consistent with migraine headaches and dizziness. PHYSICAL EXAMINATION: GENERAL: Well-developed, well-nourished female, not in acute distress. She weighs 186.4 pounds. VITAL SIGNS: Blood pressure 97/69, respiratory rate 16, pulse is 69 and regular, temperature 97.9, oxygen saturation is 99% on room air. HEENT: Normocephalic, atraumatic, otherwise unremarkable. NECK: Supple. Negative for carotid bruit, lymphadenopathy, or thyromegaly. LUNGS: Clear to A and P. CARDIOVASCULAR: Regular rate and rhythm. Normal S1, S2. There is no S3, S4 or murmur. ABDOMEN: Soft. Bowel sounds positive. EXTREMITIES: Negative for cyanosis, clubbing or pitting edema. NEUROLOGIC: Mental status: The patient is alert and oriented x 3. The speech is fluent. There is no language dysfunction. Memory, judgment, and abstract thinkings are normal. The patient denies hallucination or delusion. Cranial nerves are intact. No focal muscle bulk was seen. The tone is normal. The strength is 5/5 throughout. Sensory examination revealed normal pinprick, light touch, vibratory and position senses. Deep tendon reflexes were symmetric and active without pathology responses. Gait and coordinations were normal. DIAGNOSTIC DATA: EKG revealed sinus bradycardia at 55. Echocardiogram revealed a normal left ventricular systolic function with ejection fraction of 55-60, otherwise unremarkable. A nonenhanced head CT scan revealed no acute intracranial process and chest CT angio as described what in the history of present illness, otherwise unremarkable. LABORATORY DATA: CBC revealed white blood cells of 9.3 thousand, hemoglobin 11.7, hematocrit 34.6, and platelet count 221,000. Chemistry revealed sodium of 140, potassium 3.1, chloride 107, CO2 28, BUN 7, creatinine 0.7, glucose 103, and calcium 8.3. TSH is high at 6.6. Troponin level is normal. Cardiac enzymes are normal. Urinalysis negative for urinary tract infections and urine drug screen is negative as well IMPRESSION: 1. Possible syncope, etiology uncertain, rule out vasovagal phenomena versus nondetectable cardiac arrhythmias. 2. Migraine headaches, status post a neurostimulator implant. 3. Hypertension, hypokalemia and anemia. RECOMMENDATIONS: 1. Continue with current management initiated by Dr. Oseguera and potassium supplement. 2. If the patient has recurrent episode, we will arrange for EEG to be done on an outpatient basis. 3. Check for orthostatic hypotensions. M Renny LOAIZA MD DR: GENEVIEVE/chandan JOB#: [id number] / [id number]
--- NOTE | 2017-11-21 22:57 | PN ---
DATE: SUBJECTIVE: The patient denies any new medical or neurological complaints. She denies headaches, nausea, vomiting, chest pain, shortness of breath or palpitation, visual disturbances, weakness or paresthesia or vertigo. OBJECTIVE: GENERAL: Well-developed, well-nourished female, in no acute distress. VITAL SIGNS: Blood pressure 120/70, respiratory rate 18, pulse is 81, temperature 98.4, oxygen saturation 96% on room air. HEENT: Normocephalic, atraumatic, otherwise unremarkable. NECK: Supple, negative for carotid bruits, lymphadenopathy, or thyromegaly. LUNGS: Clear to A and P. CARDIOVASCULAR: Regular rate and rhythm. Normal S1, S2. There is no S3, S4 or murmur. ABDOMEN: Soft. Bowel sounds positive. EXTREMITIES: Negative for cyanosis, clubbing, edema. NEUROLOGIC: Mental status: The patient is alert and oriented x 3. The speech is fluent, no language dysfunction, and otherwise unremarkable. Cranial nerves are intact. No focal motor or sensory deficit. Deep tendon reflexes were symmetric and active without pathology responses and gait and coordination are normal. IMPRESSION: 1. Syncopal episode-resolved, no recurrence. 2. Multiple medical problems include hypertension, migraine headaches, status post neurostimulator implant. RECOMMENDATION: Continue with current management initiated by Dr. Oseguera and continue with current management for migraine headaches. TIFFANIE ELLIS MD DR: CHRIS/chandan JOB#: [id number] / [id number]
== END 2017-11-21 11:00 | disposition home or self-care (01) | DRG 312 ==
LOC: ER 21:06 → 1 SOUTH 22:30
PROVIDERS: ADMIT Internal Medicine; ATTEND Internal Medicine
DX: R55 Syncope and collapse (principal); D64.9 Anemia, unspecified; E55.9 Vitamin D deficiency, unspecified; E87.6 Hypokalemia; F17.210 Nicotine dependence, cigarettes, uncomplicated; F32.9 Major depressive disorder, single episode, unspecified; G43.919 Migraine, unspecified, intractable, without status migrainosus; I11.9 Hypertensive heart disease without heart failure; R00.1 Bradycardia, unspecified; K21.9 Gastro-esophageal reflux disease without esophagitis; R79.1 Abnormal coagulation profile; Z80.1 Family history of malignant neoplasm of trachea, bronchus and lung; Z82.49 Family history of ischemic heart disease and other diseases of the circulatory system; Z90.710 Acquired absence of both cervix and uterus; Z90.49 Acquired absence of other specified parts of digestive tract
CPT/HCPCS: 36415; 70250; 70450; 71045; 71275; 80048; 80076; 80307; 81001; 82550; 83690; 83735; 83880; 84443; 84484; 84702; 85025; 85379; 85610; 85651; 85730; 90471; 90756; 93005; 93306; 93880; 93970; 96372; 99406; J1650; J7120; Q9967; 99285-25; G0479; Q2035

== ENCOUNTER 2019-04-22 10:07 | Emergency (ER) | payer MEDICARE ==
[~2019-04-22] VITALS: Ht 175.3 cm; Wt 82.3 kg
[~2019-04-22 10:07] MED LIST changes: +BACL10TA; +DULO60CA98; +GABA600T7; +LAMO200T6; +OXYC1TAB7
--- NOTE | 2019-04-22 10:35 | PHYS DOC ---
Past History Past Medical History: Migraines Past Surgical History: Cholecystectomy, Hysterectomy, Other Alcohol Use: None Drug Use: None Adult General Chief Complaint Chief Complaint: HEADACHE HPI HPI 48-year-old female presents with headache. This headache started around 6 AM this morning. She rates it as severe. The patient has a history of chronic migraines. The type and location of the pain is similar to her previous migraines, just more intense. Patient denies any trauma or falls. She has a neurostimulator for her migraines and she takes Aimovig. For pain not controlled by these, she takes Percocet. She does not take any other migraine medications. Patient denies other symptoms of illness. No fever or chills. Review of Systems Review of Systems Constitutional: Denies fever or chills [] Eyes: Denies change in visual acuity, redness, or eye pain [] HENT: Denies nasal congestion or sore throat [] Respiratory: Denies cough or shortness of breath [] Cardiovascular: No additional information not addressed in HPI [] GI: Denies abdominal pain, nausea, vomiting, bloody stools or diarrhea [] : Denies dysuria or hematuria [] Musculoskeletal: Denies back pain or joint pain [] Integument: Denies rash or skin lesions [] Neurologic: headache. Denies focal weakness or sensory changes [] Endocrine: Denies polyuria or polydipsia [] All other systems were reviewed and found to be within normal limits, except as documented in this note. Current Medications Current Medications Current Medications Medications (Trade) Dose Ordered Sig/Abiola Start Time Stop Time Status Last Admin Dose Admin Dexamethasone Sodium Phosphate (Decadron) 10 mg 1X ONCE 04/22/19 10:30 04/22/19 10:31 UNV Diphenhydramine HCl (Benadryl) 25 mg 1X ONCE 04/22/19 10:30 04/22/19 10:31 UNV Ketorolac Tromethamine (Toradol 30mg Vial) 30 mg 1X ONCE 04/22/19 10:30 04/22/19 10:31 UNV Metoclopramide HCl (Reglan Vial) 10 mg 1X ONCE 04/22/19 10:30 04/22/19 10:31 UNV Sodium Chloride 1,000 ml @ 1,000 mls/hr 1X ONCE 04/22/19 10:30 04/22/19 11:29 UNV Allergies Allergies Allergies Coded Allergies Type Severity Reaction Last Updated Verified No Known Drug Allergies 01/05/15 No Physical Exam Physical Exam Constitutional: Well developed, well nourished, no acute distress, non-toxic a ppearance. [] HENT: Normocephalic, atraumatic, bilateral external ears normal, oropharynx moist, no oral exudates, nose normal. [] Eyes: Photophobia. PERRLA, EOMI, conjunctiva normal, no discharge. [] Neck: Normal range of motion, no tenderness, supple, no stridor. [] Cardiovascular:Heart rate regular rhythm, no murmur [] Lungs & Thorax: Bilateral breath sounds clear to auscultation [] Abdomen: Bowel sounds normal, soft, no tenderness, no masses, no pulsatile masses. [] Skin: Warm, dry, no erythema, no rash. [] Back: No tenderness, no CVA tenderness. [] Extremities: No tenderness, no cyanosis, no clubbing, ROM intact, no edema. [] Neurologic: Alert and oriented X 3, normal motor function, normal sensory function, no focal deficits noted. [] Psychologic: Affect normal, judgement normal, mood normal. [] EKG EKG [] Radiology/Procedures Radiology/Procedures [] Course & Med Decision Making Course & Med Decision Making Pertinent Labs and Imaging studies reviewed. (See chart for details) For her headache, I'll give the patient 1 L normal saline, 25 mg Benadryl, 10 mg of Reglan, 30 mg Toradol, and 10 mg of dexamethasone. The patient has had improvement of her headache. Her labs and urinalysis are unremarkable. The patient is stable for discharge at this time. [] Dragon Disclaimer Dragon Disclaimer This electronic medical record was generated, in whole or in part, using a voice recognition dictation system. Departure Departure: Impression: Primary Impression: Migraine headache Disposition: HOME, SELF-CARE Condition: IMPROVED Referrals: MADHAVI BENNETT (PCP) Patient Instructions: Recurrent Migraine Headache, [id number] Problem Qualifiers Primary Impression: Migraine headache Migraine type: chronic without aura Status migrainosus presence: without status migrainosus Intractability: intractable Qualified Codes: G43.719 - Chronic migraine without aura, intractable, without status migrainosus MIKAELA MAO DO Apr 22, 2019 10:35
[2019-04-22] MEDS: IV NORMAL SALINE 1,000ML 1,000 ML IV ONE (10:58)
[2019-04-22] MEDS: KETOROLAC 30 MG/ML VIAL. IVP ONE (10:59)
[2019-04-22] MEDS: diphenhydrAMINE 50 MG/ML VIAL IVP ONE (11:01)
[2019-04-22] MEDS: DEXAMETHASONE SOD PHOS 10 MG/ML VIAL IV ONE (11:01)
[2019-04-22] MEDS: METOCLOPRAMIDE HCL 10 MG/2 ML VIAL. IVP ONE (11:01)
[2019-04-22 11:04] LABS: BASO # 0.1 x10^3/uL (0.0-0.2); BASO % 1 % (0-3); EOS # 0.4 x10^3/uL (0.0-0.7); EOS % 5 % (0-3); HEMATOCRIT 41.7 % (36.0-47.0); HEMOGLOBIN 13.8 g/dL (12.0-15.5); LYMPH % 24 % (24-48); MEAN CORPUSCULAR HEMOGLOBIN 29 pg (25-35); MEAN CORPUSCULAR HGB CONC 33 g/dL (31-37); MEAN CORPUSCULAR VOLUME 87 fL (79-100); MONO # 0.6 x10^3/uL (0.0-1.1); MONO % 7 % (0-9); NEUT # 5.2 x10^3uL (1.8-7.7); NEUT % 63 % (31-73); PLATELET COUNT 317 x10^3/uL (140-400); RED BLOOD COUNT 4.77 x10^6/uL (3.50-5.40); RED CELL DISTRIBUTION WIDTH 14.7 % (11.5-14.5); WHITE BLOOD COUNT 8.3 x10^3/uL (4.0-11.0)
[2019-04-22 11:10] LABS: CALCIUM 8.5 mg/dL (8.5-10.1); CREATININE 0.8 mg/dL (0.6-1.0); GFR 77.2; POTASSIUM 3.6 mmol/L (3.5-5.1)
[2019-04-22 11:16] LABS: ALBUMIN 3.3 g/dL (3.4-5.0); ALBUMIN/GLOBULIN RATIO 0.9 (1.0-1.7); TOTAL BILIRUBIN 0.1 mg/dL (0.2-1.0); TOTAL PROTEIN 7.1 g/dL (6.4-8.2)
[2019-04-22 12:08] LABS: BACTERIA,URINE FEW /HPF (0-FEW); BILIRUBIN,URINE NEG (NEG); CLARITY,URINE HAZY; COLOR,URINE YELLOW; GLUCOSE,URINE NEG (NEG); NITRITE,URINE NEG (NEG); RBC,URINE OCC /HPF (0-2); SQUAMOUS EPITHELIAL CELL,UR MOD /LPF; UROBILINOGEN,URINE 0.2 mg/dL (0.2 mg/dL)
[2019-04-22 12:40] VITALS: BP 125/73
== END 2019-04-22 13:00 | disposition home or self-care (01) ==
LOC: ER 10:07
DX: G43.909 Migraine, unspecified, not intractable, without status migrainosus (principal)
CPT/HCPCS: 36415; 80053; 81001; 85025; 96374; 96375; 99284; J1100; J1200; J1885; J2765; 99283-25; J7030

== ENCOUNTER 2019-09-22 15:34 | Emergency (ER) | payer MEDICARE ==
[~2019-09-22] VITALS: Ht 175.3 cm; Wt 80.1 kg
[2019-09-22] MEDS ORDERED: IV NORMAL SALINE 1,000ML 1,000 ML IV ONE (16:00)
[2019-09-22] MEDS ORDERED: PROCHLORPERAZINE 10 MG/2 ML VIAL. IM ONE (16:00)
[2019-09-22] MEDS ORDERED: diphenhydrAMINE 50 MG/ML VIAL IM ONE (16:00)
[2019-09-22 17:11] VITALS: BP 133/77
[2019-09-22] MEDS ORDERED: DEXAMETHASONE SOD PHOS 10 MG/ML VIAL. IV ONE (17:15)
--- NOTE | 2019-09-22 17:16 | PHYS DOC ---
Past History Past Medical History: Migraines Past Surgical History: Cholecystectomy, Hysterectomy, Tonsillectomy, Other Additional Past Surgical Histo: Neurostimulator left upper chest Alcohol Use: None Drug Use: None Adult General Chief Complaint Chief Complaint: HEADACHE HPI HPI Patient is a 43-year-old female who presents complaining of migraine. This is an acute on chronic problem. Patient has history of migraines and reports cl assical feelings consistent with previous migraines that started 1 week ago. Patient has numerous outpatient medications for her migraines in addition to a neurostimulator implanted in her head; however, all abortive therapies have not been successful for her current migraine. She has history of requiring ED intervention for her migraines in the past, denies ever being hospitalized. Review of Systems Review of Systems Fourteen body systems of review of systems have been reviewed. See HPI for pertinent positives and negative responses, other cavazos all other systems are negative, non-pertinent or non-contributory Current Medications Current Medications Current Medications Medications (Trade) Dose Ordered Sig/Abiola Start Time Stop Time Status Last Admin Dose Admin Dexamethasone Sodium Phosphate (Decadron) 10 mg 1X ONCE 09/22/19 17:15 09/22/19 17:16 UNV Diphenhydramine HCl (Benadryl) 25 mg 1X ONCE 09/22/19 16:00 09/22/19 16:10 DC 09/22/19 16:17 25 MG Prochlorperazine Edisylate (Compazine) 10 mg 1X ONCE 09/22/19 16:00 09/22/19 16:10 DC 09/22/19 16:18 10 MG Sodium Chloride 1,000 ml @ 1,000 mls/hr 1X ONCE 09/22/19 16:00 09/22/19 17:00 DC 09/22/19 16:11 1,000 MLS/HR Allergies Allergies Allergies Coded Allergies Type Severity Reaction Last Updated Verified No Known Drug Allergies 01/05/15 No Physical Exam Physical Exam Constitutional: Well developed, well nourished, moderate distress, non-toxic appearance. Appears uncomfortable and in pain [] HENT: Normocephalic, atraumatic, bilateral external ears normal, oropharynx moist, no oral exudates, nose normal. [] Eyes: PERRLA, EOMI, conjunctiva normal, no discharge. Reports mild photophobia [] Neck: Normal range of motion, no tenderness, supple, no stridor. [] Cardiovascular:Heart rate regular rhythm, no murmur [] Lungs & Thorax: Bilateral breath sounds clear to auscultation [] Abdomen: Bowel sounds normal, soft, no tenderness, no masses, no pulsatile masses. [] Skin: Warm, dry, no erythema, no rash. [] Back: No tenderness, no CVA tenderness. [] Extremities: No tenderness, no cyanosis, no clubbing, ROM intact, no edema. [] Neurologic: Alert and oriented X 3, normal motor function, normal sensory function, no focal deficits noted. [] Psychologic: Affect normal, judgement normal, mood normal. [] Current Patient Data Vital Signs Vital Signs Date Time Temp Pulse Resp B/P (MAP) Pulse Ox O2 Delivery O2 Flow Rate FiO2 09/22/19 15:44 98.2 69 16 154/88 (110) 99 Room Air EKG EKG [] Radiology/Procedures Radiology/Procedures [] Course & Med Decision Making Course & Med Decision Making Evaluated by myself on immediate ED arrival Hemodynamically stable, history and physical exam grossly non-concerning for any acute abnormalities requiring further work-up Patient treated in ED with IV Compazine, Benadryl, and steroids with great relief in symptomatology Discussed further invasive work-up with patient but joint decision to defer this to outpatient PCP and previously established neurologist Also discussed possibility this could be an acute presentation of a more concerning process Strict return precautions discussed with good understanding by patient, all questions and concerns addressed prior to ED departure Patient to follow-up with PCP in upcoming 1 to 5 days Hua Disclaimer Hua Disclaimer This electronic medical record was generated, in whole or in part, using a voice recognition dictation system. Departure Departure: Impression: Primary Impression: Migraine headache Disposition: HOME/RESIDENCE PRIOR TO ADM Condition: IMPROVED Referrals: MADHAVI BENNETT (PCP) Patient Instructions: Migraine Headache, Recurrent Migraine Headache Additional Instructions: As discussed prior to ED Parcher, please call your PCP first thing tomorrow morning to schedule follow-up in upcoming 1 to 5 days You were treated in our ER for an acute on chronic migraine. You were administered IV fluids, IV steroids, IV Compazine, and IV Benadryl Justification of Admission: Justification of Admission: Justification of Admission Dx: N/A JESSE CARLIN DO Sep 22, 2019 17:16
== END 2019-09-22 17:31 | disposition home or self-care (01) ==
LOC: ER 15:34
DX: G43.909 Migraine, unspecified, not intractable, without status migrainosus (principal)
CPT/HCPCS: 96361; 96372; 96374; 99284; J0780; J1100; J1200; J7030

== ENCOUNTER 2019-11-07 18:17 | Emergency (ER) | payer MEDICARE ==
[~2019-11-07] VITALS: Ht 175.3 cm; Wt 81.8 kg
[2019-11-07 19:34] LABS: BASO # 0.1 x10^3/uL (0.0-0.2); BASO % 1 % (0-3); EOS # 0.4 x10^3/uL (0.0-0.7); EOS % 4 % (0-3); HEMATOCRIT 46.8 % (36.0-47.0); HEMOGLOBIN 15.7 g/dL (12.0-15.5); LYMPH # 1.9 x10^3/uL (1.0-4.8); LYMPH % 22 % (24-48); MEAN CORPUSCULAR HEMOGLOBIN 29 pg (25-35); MEAN CORPUSCULAR HGB CONC 34 g/dL (31-37); MEAN CORPUSCULAR VOLUME 88 fL (79-100); MONO # 0.4 x10^3/uL (0.0-1.1); MONO % 5 % (0-9); NEUT # 5.8 x10^3uL (1.8-7.7); NEUT % 67 % (31-73); PLATELET COUNT 294 x10^3/uL (140-400); RED BLOOD COUNT 5.33 x10^6/uL (3.50-5.40); RED CELL DISTRIBUTION WIDTH 13.7 % (11.5-14.5); WHITE BLOOD COUNT 8.6 x10^3/uL (4.0-11.0)
--- NOTE | 2019-11-07 19:34 | PHYS DOC ---
Past History Past Medical History: Migraines (NAYLA VERGARA MD) Past Surgical History: Cholecystectomy, Hysterectomy, Tubal ligation, Other Additional Past Surgical Histo: neurostimulator (NAYLA VERGARA MD) Additional Smoking Information: 1 PPD Alcohol Use: None Drug Use: None (NAYLA VERGARA MD) Adult General Chief Complaint Chief Complaint: OVERDOSE HPI HPI Patient is a 49-year-old female who presents to the emergency room after taking an unknown amount of Cymbalta. Patient is unable to tell me exactly how much she took. She states that she took it over several hours. She states she does not try to hurt herself. She states that she has been out of her oxycodone so she took her Cymbalta for her chronic pain. She states she is on Cymbalta for chronic pain and she thought that it was okay. Treatment started feeling bad. She states she is having dry mouth, lightheadedness, and just general aches he feelings. She was feeling fine prior to taking her Cymbalta. (NYALA VERGARA MD) Review of Systems Review of Systems Negative other than noted (NAYLA VERGARA MD) Allergies Allergies Allergies Coded Allergies Type Severity Reaction Last Updated Verified No Known Drug Allergies 01/05/15 No (NAYLA VERGARA MD) Physical Exam Physical Exam General: Awake, alert, NAD. Well Nourished, well hydrated. Cooperative HEENT: Atraumatic, EOMI, PERRL, airway patent, moist oral mucosa Neck: Supple, trachea midline Respiratory: CTA bilaterally, normal effort, no wheezing/crackles CV: RRR, no murmur, cap refill <2 GI: Soft, nondistended, nontender, no masses MSK: No obvious deformities Skin: Warm, dry, intact Neuro: A&O x3, speech NL, sensory and motor grossly intact, no focal deficits Psych: Normal affect, normal mood, not suicidal or homicidal (NAYLA VERGARA MD) Physical Exam Constitutional: Well developed, well nourished, no acute distress, non-toxic appearance HENT: Normocephalic, atraumatic Eyes: PERRL, EOMI, conjunctiva normal, no discharge Neck: Normal range of motion, no tenderness, supple Lungs & Thorax: No respiratory distress, equal chest rise and fall Abdomen: Soft, no tenderness Skin: Warm, dry, no erythema, no rash Extremities: No tenderness, ROM intact, no edema Neurologic: Alert and oriented X 3, normal motor function, normal sensory function, no focal deficits noted Psychologic: Affect normal, judgment normal (JACE GARRIDO DO) Current Patient Data Vital Signs Vital Signs Date Time Temp Pulse Resp B/P (MAP) Pulse Ox O2 Delivery O2 Flow Rate FiO2 11/07/19 18:45 98.0 116 18 145/102 (116) 99 Room Air (NAYLA VERGARA MD) EKG EKG [] (NAYLA VERGARA MD) EKG @2011 NSR at 81bpm, NO ST elevation, QRS 90ms, QT/QTc 388/451ms @2213 NSR at 93bpm, NO ST elevation, QRS 90ms, QT/QTc 372/465ms (JACE GARRIDO DO) Radiology/Procedures Radiology/Procedures [] (NAYLA VERGARA MD) Course & Med Decision Making Course & Med Decision Making Pertinent Labs and Imaging studies reviewed. (See chart for details) Patient is a 49 year-old female with a PMH of chronic pain who presents to the ED after an overdose. Patient took unknown amount of Cymbalta around throughout the day. This was not a suicide attempt. Upon arrival the Emergency Room patient is protecting their airway and does not need to be intubated. Toxicology work up was ordered including basic labs, EKG, CXR, drug screen, tylenol levels, salicylate levels, alcohol level. Patient discussed with oncoming physician Dr. Garrido who will assume care. (NAYLA VERGARA MD) Course & Med Decision Making 1800- Signout received from Dr. Vergara for patient with overdose on Cymbalta. Labs reviewed. EKG stable. Poison control contacted who recommend observation on monitor for 6 hours post ingestion with repeat EKG. Repeat EKG stable. 0- Patient stable for discharge with outpatient follow-up with PCP. Discussed findings and plan with patient, who acknowledges understanding and agreement. (JACE GARRIDO DO) Dragon Disclaimer Dragon Disclaimer This electronic medical record was generated, in whole or in part, using a voice recognition dictation system. (NAYLA VERGARA MD) Departure Departure: Impression: Primary Impression: Overdose Disposition: 01 HOME/RESIDENCE PRIOR TO ADM Condition: STABLE Referrals: MADHAVI BENNETT (PCP) Patient Instructions: Overdose, Adult Additional Instructions: Please take your medications as prescribed. You can cause serious harm by not taking them correctly. Please follow closely with your doctor for further evaluation and treatment. Justification of Admission: Justification of Admission: Justification of Admission Dx: N/A (NAYLA VERGARA MD) Justification of Admission Dx: N/A (JACE GARRIDO DO) Problem Qualifiers Primary Impression: Overdose Encounter type: initial encounter Injury intent: accidental or unintentional Qualified Codes: T50.901A - Poisoning by unspecified drugs, medicaments and biological substances, accidental (unintentional), initial encounter NAYLA VERGARA MD Nov 07, 2019 19:34 JACE GARRIDO DO Nov 07, 2019 22:30
[2019-11-07 19:42] LABS: CALCIUM 8.9 mg/dL (8.5-10.1); CREATININE 0.9 mg/dL (0.6-1.0); GFR 67.1; POTASSIUM 3.5 mmol/L (3.5-5.1)
[2019-11-07 19:47] LABS: ACETAMIN < 2 mcg/mL (10-30); ETHANOL < 10 mg/dL (0-10); SALIC 4.1 mg/dL (2.8-20.0)
[2019-11-07 19:55] LABS: ALBUMIN 3.9 g/dL (3.4-5.0); ALBUMIN/GLOBULIN RATIO 1.1 (1.0-1.7); TOTAL BILIRUBIN 0.5 mg/dL (0.2-1.0); TOTAL PROTEIN 7.6 g/dL (6.4-8.2)
[2019-11-07 19:58] LABS: BARBITURATES NEG (NEG); BENZODIAZEPINES NEG (NEG); CANNABINOIDS NEG (NEG); COCAINE NEG (NEG); METHADONE NEG (NEG); OPIATES NEG (NEG); PHENCYCLIDINE NEG (NEG)
[2019-11-07 20:00] LABS: AMPHETAMINE/METHAMPHETAMINE NEG (NEG)
[2019-11-07 20:04] LABS: BILIRUBIN,URINE NEG (NEG); CLARITY,URINE CLEAR; COLOR,URINE YELLOW; GLUCOSE,URINE NEG (NEG)
[2019-11-07 20:05] LABS: BACTERIA,URINE 0 /HPF (0-FEW); NITRITE,URINE NEG (NEG); RBC,URINE OCC /HPF (0-2); SQUAMOUS EPITHELIAL CELL,UR MOD /LPF; UROBILINOGEN,URINE 0.2 mg/dL (0.2 mg/dL); WBC,URINE OCC /HPF (0-4)
[2019-11-07 22:30] VITALS: BP 148/91
--- NOTE | 2019-11-08 03:24 | EKG ---
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
--- NOTE | 2019-11-08 03:26 | EKG ---
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
== END 2019-11-07 22:40 | disposition home or self-care (01) ==
LOC: ER 18:17
DX: T43.211A Poisoning by selective serotonin and norepinephrine reuptake inhibitors, accidental (unintentional), initial encounter (principal); R68.2 Dry mouth, unspecified; R42 Dizziness and giddiness; G43.909 Migraine, unspecified, not intractable, without status migrainosus; F17.200 Nicotine dependence, unspecified, uncomplicated; Y92.89 Other specified places as the place of occurrence of the external cause
CPT/HCPCS: 36415; 80053; 80307; 80329; 81001; 82550; 83880; 84484; 85025; 85610; 85730; 93005; 99285; G0480

== ENCOUNTER 2021-04-22 21:20 | Emergency (ER) | payer MEDICARE, OTHER ==
[~2021-04-22] VITALS: Ht 175.3 cm; Wt 88.3 kg
--- NOTE | 2021-04-22 21:50 | PHYS DOC ---
Past History Past Medical History: Migraines Past Surgical History: Cholecystectomy, Hysterectomy, Tubal ligation, Other Additional Past Surgical Histo: neurostimulator Alcohol Use: None Drug Use: None General Adult EDM: Chief Complaint: LOWEREXTREMITY INJURY HPI: HPI: " ,, I twisted my Lt knee twice now.. [place] and tonight ... Extension cord got caught on my foot tonight and tripped and fell on it again...." Patient is a 50 year old female who presents with above hx of fall and injury to left knee. Patient does have obvious swelling left knee. Range of motion induces pain. Does have some anterior laxity on anterior draw. Can do straight leg lift. Distal neurovascular is equal to right foot. No other injury in the fall. No histamine suppression. No history recent travel. No history of specific ill contacts. Review of Systems: Review of Systems: Constitutional: Denies fever or chills Eyes: Denies change in visual acuity HENT: Denies nasal congestion or sore throat Respiratory: Denies cough or shortness of breath Cardiovascular: Denies chest pain or edema GI: Denies abdominal pain, nausea, vomiting, bloody stools or diarrhea : Denies dysuria Musculoskeletal: Complains of injury to left knee Integument: Denies rash Neurologic: Denies headache, focal weakness or sensory changes Endocrine: Denies polyuria or polydipsia Lymphatic: Denies swollen glands Psychiatric: Denies depression or anxiety Family History: Family History: Noncontributory the presentation Current Medications: Current Meds: See nursing for home meds Allergies: Allergies: Allergies Coded Allergies Type Severity Reaction Last Updated Verified No Known Drug Allergies 01/05/15 No Physical Exam: PE: Constitutional: Moderate acute distress, non-toxic appearance. [] HENT: Normocephalic, atraumatic, bilateral external ears normal, oropharynx moist, no oral exudates, nose normal. [] Eyes: PERRLA, EOMI, conjunctiva normal, no discharge. [] Neck: Normal range of motion, no tenderness, supple, no stridor. [] Cardiovascular:Heart rate regular rhythm, no murmur [] Lungs & Thorax: Bilateral breath sounds clear to auscultation [] Abdomen: Bowel sounds normal, soft, no tenderness, no masses, no pulsatile masses. [] Skin: Warm, dry, no erythema, no rash. [] Back: No tenderness, no CVA tenderness. [] Extremities: No tenderness, no cyanosis, no clubbing, ROM intact, no edema. Except findings in left knee as per HPI. Neurologic: Alert and oriented X 3, normal motor function, normal sensory function, no focal deficits noted. [] Psychologic: Affect normal, judgement normal, mood normal. [] Current Patient Data: Vital Signs: Vital Signs Date Time Temp Pulse Resp B/P (MAP) Pulse Ox O2 Delivery O2 Flow Rate FiO2 04/22/21 21:28 98.4 90 16 129/73 (91 97 Room Air EKG: EKG: [] Radiology/Procedures: Radiology/Procedures: [][address] [address] IMAGING REPORT Signed PATIENT: BARRINGTON SCHWARTZ ACCOUNT: [id number] : 1970 LOCATION: ER AGE: 50 SEX: F EXAM STATUS: PRE ER ORD. PHYSICIAN: GAGANDEEP HERNANDEZ MD REASON: fall PROCEDURE: KNEE LEFT 4V 4 view of left knee dated 04/22/2021. COMPARISON: None. Clinical data indication: Pain after fall FINDINGS: 4 views of left knee show normal bony alignment. No displaced fracture. No periostitis or bone destruction. There is a small joint effusion. IMPRESSION: 1. No acute bony abnormality. 2. Suspected small joint effusion. If there is clinical concern for internal derangement, MRI would better evaluate. Electronically signed by: Eloy Berrios MD (04/22/2021 10:50 PM) [facility] [place] DICTATED AND SIGNED BY: ELOY BERRIOS MD DATE: 04/22/21 2032 CC: GAGANDEEP HERNANDEZ MD; MADHAVI BENNETT ~MTH0 0 Heart Score: C/O Chest Pain: N/A Risk Factors: Risk Factors: DM, Current or recent (<one month) smoker, HTN, HLP, family history of CAD, obesity. Risk Scores: Score 0 - 3: 2.5% MACE over next 6 weeks - Discharge Home Score 4 - 6: 20.3% MACE over next 6 weeks - Admit for Clinical Observation Score 7 - 10: 72.7% MACE over next 6 weeks - Early Invasive Strategies Course & Med Decision Making: Course & Med Decision Making Pertinent Labs and Imaging studies reviewed. (See chart for details) Ice packs as needed. Elevation, rest, and use crutches. Wear Jeff wrap. Follow-up primary care. Follow-up orthopedics. May need CT to evaluate knee fully. Patient not a candidate for MRI because of neural implants for her migraines. Impression: 1. Knee Sprain/strain [] Hua Disclaimer: Hua Disclaimer: This electronic medical record was generated, in whole or in part, using a voice recognition dictation system. Departure Departure: Referrals: MADHAVI BENNETT (PCP) Hua Disclaimer This chart was dictated in whole or in part using Voice Recognition software in a busy, high-work load, and often noisy Emergency Department environment. It may contain unintended and wholly unrecognized errors or omissions. GAGANDEEP HERNANDEZ MD Apr 22, 2021 21:49
[2021-04-22] MEDS ORDERED: HYDROcodon/IBUPROFEN 7.5/200MG 1 TAB TABLET PO ONE (22:00)
--- NOTE | 2021-04-22 22:53 | RAD ---
4 view of left knee dated 04/22/2021. COMPARISON: None. Clinical data indication: Pain after fall FINDINGS: 4 views of left knee show normal bony alignment. No displaced fracture. No periostitis or bone destru ction. There is a small joint effusion. IMPRESSION: 1. No acute bony abnormality. 2. Suspected small joint effusion. If there is clinical concern for internal derangement, MRI would b marlee evaluate. Electronically signed by: Eloy Berrios MD (04/22/2021 10:50 PM) MIC[facility]EL
[2021-04-23] VITALS: BP 124/68
== END 2021-04-23 00:10 | disposition home or self-care (01) ==
LOC: ER 21:20
DX: S83.92XA Sprain of unspecified site of left knee, initial encounter (principal); G43.909 Migraine, unspecified, not intractable, without status migrainosus; W01.0XXA Fall on same level from slipping, tripping and stumbling without subsequent striking against object, initial encounter; Y93.89 Activity, other specified; Y92.89 Other specified places as the place of occurrence of the external cause; Y99.8 Other external cause status
CPT/HCPCS: 29505; 73564; 99283